=== PATIENT | male | born 1980 | race African-American/Black ===

== ENCOUNTER 2016-09-27 18:47 | Emergency (ER) | payer OTHER ==
[2016-09-27 19:18] VITALS: BP 123/58; PULSE 82; RESP 18; TEMP 98.2
[2016-09-27] MEDS ORDERED: ONDANSETRON 4 MG/2 ML VIAL IM STA (19:30)
[2016-09-27] MEDS ORDERED: DICYCLOMINE 10 MG/ML 2 ML AMP IM STA (19:30)
--- NOTE | 2016-09-27 19:33 | ED ---
Nausea/Vomiting/Diarrhea HPI - General Chief complaint: Nausea/Vomiting/Diarrhea Stated complaint: vomiting Time Seen by Provider: 09/27/16 19:21 Source: patient, RN notes reviewed Mode of arrival: ambulatory Limitations: no limitations - History of Present Illness Initial comments: 36-year-old male presents to the emergency Department chief complaint of nausea vomiting and diarrhea. Patient states he has been sick for about 2 days. Patient denies any hematemesis any coffee ground like diarrhea or any blood in the stool. Patient states that he does have 2 daughters and they were sick a few days ago with similar like symptoms they got better and then he developed the same symptoms. Patient states that he has some cramping is diffuse throughout the abdomen before he has diarrhea but there is no pain at this time. Patient denies any fevers or chills with this. Patient states he has been able to tolerate some oral intake. Patient denies any changes in urination. Patient has a significant health history are negative other symptoms. Patient denies any recent fever, chills, shortness of breath, chest pain, back pain, numbness or tingling, dysuria or hematuria, constipation or diarrhea, headaches or visual changes, or any other current symptoms. - Related Data Home Medications Medication Instructions Recorded Confirmed Dextroamphetamine/Amphetamine 10 mg PO BID 09/27/16 09/27/16 [Adderall] Previous Rx's Medication Instructions Recorded Dicyclomine [Bentyl] 10 mg PO TID #20 capsule 09/27/16 Ondansetron Odt [Zofran ODT] 4 mg PO Q8HR PRN #20 tab 09/27/16 Allergies Allergy/AdvReac Type Severity Reaction Status Date / Time No Known Allergies Allergy Verified 09/27/16 19:18 Review of Systems ROS Statement: Those systems with pertinent positive or pertinent negative responses have been documented in the HPI. ROS Other: All systems not noted in ROS Statement are negative. Past Medical History Past Medical History: No Reported History History of Any Multi-Drug Resistant Organisms: None Reported Past Surgical History: No Surgical Hx Reported Past Psychological History: No Psychological Hx Reported Smoking Status: Former smoker Past Alcohol Use History: None Reported Past Drug Use History: None Reported General Exam - General Exam Comments Initial Comments: General: The patient is awake and alert, in no distress, and does not appear acutely ill. Eye: Pupils are equal, round and reactive to light, extra-ocular movements are intact; there is normal conjunctiva bilaterally. No signs of icterus. Ears, nose, mouth and throat: There are moist mucous membranes and no oral lesions. Neck: The neck is supple, there is no tenderness. Cardiovascular: There is a regular rate and rhythm. No murmur, rub or gallop is appreciated. Respiratory: Lungs are clear to auscultation, respirations are non-labored, breath sounds are equal. No wheezes, stridor, rales, or rhonchi. Gastrointestinal: Soft, non-distended, non-tender abdomen without masses or organomegaly noted. There is no rebound or guarding present. No CVA tenderness. Bowel sounds are unremarkable. Back: There is no tenderness to palpation in the midline. There is no obvious deformity. No rashes noted. Musculoskeletal: Normal ROM, no tenderness, There is no pedal edema. There is no calf tenderness or swelling. Sensation intact. Pulses equal bilaterally 2+. Neurological: CN II-XII intact, There are no obvious motor or sensory deficits. Coordination appears grossly intact. Speech is normal. Skin: Skin is warm and dry and no rashes or lesions are noted. Psychiatric: Cooperative, appropriate mood & affect, normal judgment. Limitations: no limitations Course Vital Signs 09/27/16 19:15 Temperature 98.2 F Pulse Rate 82 Respiratory 18 Rate Blood Pressure 123/58 O2 Sat by Pulse 98 Oximetry Medical Decision Making - Medical Decision Making 36-year-old male presents to the emergency department with a chief complaint of nausea vomiting diarrhea. Patient was offered blood work he was offered x-ray to further evaluate. He states he just please see has a stomach flu he just needs some medicine to help deal with the symptoms. This and was started on Zofran and Bentyl for home. We discussed follow-up and return parameters. Patient stated that he understood all questions were answered. This time patient will be discharged home. Disposition Clinical Impression: Nausea & vomiting, Diarrhea Disposition: HOME SELF-CARE Condition: Stable Instructions: Gastroenteritis (ED) Additional Instructions: Please use medication as discussed. Please follow up with family doctor if symptoms have not improved over the next two days. Please return to the emergency room if your symptoms increase or worsen or for any other concerns. Prescriptions: Dicyclomine [Bentyl] 10 mg PO TID #20 capsule Ondansetron Odt [Zofran ODT] 4 mg PO Q8HR PRN #20 tab PRN Reason: Nausea Referrals: Susan Giordano MD [Primary Care Provider] - 1-2 days Time of Disposition: 19:33
== END 2016-09-27 19:59 | disposition home or self-care (01) ==
LOC: EC 18:47
DX: R11.2 Nausea with vomiting, unspecified (principal); R19.7 Diarrhea, unspecified; Z79.899 Other long term (current) drug therapy; Z87.891 Personal history of nicotine dependence
CPT/HCPCS: 99283; 96372; J0500; J2405

== ENCOUNTER 2017-06-21 17:39 | Emergency (ER) | payer OTHER ==
[2017-06-21 17:46] VITALS: BP 129/84; PULSE 82; RESP 18; TEMP 99.1
[2017-06-21] MEDS ORDERED: PROPARACAINE 0.5% OPHTH DROPS 15 ML BTL RIGHT EYE STA (17:51)
[2017-06-21] MEDS ORDERED: TOBRAMYCIN 0.3% OPHTH DROPS 5 ML BTL RIGHT EYE STA (18:23)
--- NOTE | 2017-06-21 18:23 | ED ---
Eye Problem HPI - General Chief complaint: Eye Problems Stated complaint: fb in rt eye (wood) Time Seen by Provider: 06/21/17 17:47 Source: patient Mode of arrival: ambulatory Limitations: no limitations - History of Present Illness Initial comments: 36-year-old male patient presents to emergency department today for complaints of foreign body to the right eye. Patient states that he was doing some donato and cutting wood when he fell sawdust go into his the right eye. He states this occurred approximately a half an hour ago. Patient states that since then he has felt a scratching in the inner part of the eye as well as on his eyelid. He states there are 2 brown spots that he believes is sawdust. He states that he did flush the eye with water however it did not improve his symptoms. He states he has been draining clear fluid. He states that his vision appears to be foggy. Patient states he is supposed to wear eyeglasses however has not had an cruise agent appointment in a few years. Patient denies any recent fever, chills, shortness breath, chest pain, abdominal pain, nausea, vomiting, diarrhea, constipation, back pain, numbness, tingling, headache, hematuria, dysuria, urinary frequency, urinary urgency, or any other complaints. He states he is up-to-date on his immunizations including tetanus. - Related Data Home Medications Medication Instructions Recorded Confirmed Dextroamphetamine/Amphetamine 10 mg PO BID 09/27/16 09/27/16 [Adderall] Previous Rx's Medication Instructions Recorded Dicyclomine [Bentyl] 10 mg PO TID #20 capsule 09/27/16 Ondansetron Odt [Zofran ODT] 4 mg PO Q8HR PRN #20 tab 09/27/16 Allergies Allergy/AdvReac Type Severity Reaction Status Date / Time No Known Allergies Allergy Verified 09/27/16 19:41 Review of Systems ROS Statement: Those systems with pertinent positive or pertinent negative responses have been documented in the HPI. ROS Other: All systems not noted in ROS Statement are negative. Past Medical History Past Medical History: No Reported History History of Any Multi-Drug Resistant Organisms: None Reported Past Surgical History: No Surgical Hx Reported Past Psychological History: No Psychological Hx Reported Smoking Status: Current every day smoker Past Alcohol Use History: None Reported Past Drug Use History: None Reported General Exam Limitations: no limitations General appearance: alert, in no apparent distress, other (Physical well- developed, well-nourished adult male patient in no acute distress. Vital signs upon presentation are temperature 99.1F, pulse 82, respirations 18, blood pressure 129/84, pulse ox 100% on room air.) Eye exam: Present: PERRL, EOMI, conjunctival injection (Mild right), other (Slit -lamp examination with foreseen stain shows no evidence for corneal abrasion, laceration, globe rupture, or conjunctival abrasion. Slit-lamp examination reveals no foreign body. Lid eversion performed with no evidence of foreign body. No evidence of hyphema. EOMI without pain or limitation.). Absent: normal appearance, scleral icterus, nystagmus, periorbital swelling ENT exam: Present: normal exam, normal oropharynx, mucous membranes moist Respiratory exam: Present: normal lung sounds bilaterally. Absent: respiratory distress, wheezes, rales, rhonchi, stridor Cardiovascular Exam: Present: regular rate, normal rhythm, normal heart sounds. Absent: systolic murmur, diastolic murmur, rubs, gallop, clicks Neurological exam: Present: alert, oriented X3, CN II-XII intact Psychiatric exam: Present: normal affect, normal mood Skin exam: Present: warm, dry, intact, normal color. Absent: rash Course Vital Signs 06/21/17 17:44 Temperature 99.1 F Pulse Rate 82 Respiratory 18 Rate Blood Pressure 129/84 O2 Sat by Pulse 100 Oximetry Medical Decision Making - Medical Decision Making 36-year-old male patient presented to emergency department today for possible foreign body to the right eye. Physical examination did reveal conjunctival injection with clear tearing. Monique lamp examination and slit lamp examination was performed and showed no evidence of foreign body, conjunctival abrasion, corneal abrasion, evidence of laceration, globe rupture. Patient did have foreign body sensation and immediate improvement with instillation of proparacaine drops. Patient will be discharged home today with tobramycin ophthalmic drops to be administered 4 times daily while awake. He is instructed also to obtain [id number] artificial tears with no preservatives for comfort. He is instructed to follow-up with ophthalmology if his symptoms don't improve over the next 1-2 days. He is instructed to return here immediately for any new, worsening, or concerning symptoms. He verbalizes understanding and agrees with this plan. Disposition Clinical Impression: Eye foreign body Disposition: HOME SELF-CARE Condition: Good Instructions: Eye Foreign Body (ED) Additional Instructions: The drops into the eye 4 times daily while awake. You can also take ibuprofen for pain control. Follow-up with ophthalmology if her symptoms aren't improving over the next 1-2 days. Return here immediately for any new, worsening, or concerning symptoms. Referrals: Susan Giordano MD [Primary Care Provider] - 1-2 days Gordy Reyes MD [STAFF PHYSICIAN] - 1-2 days Time of Disposition: 18:23
== END 2017-06-21 18:37 | disposition home or self-care (01) ==
LOC: EC 17:39
DX: T15.01XA Foreign body in cornea, right eye, initial encounter (principal); F17.200 Nicotine dependence, unspecified, uncomplicated; Z79.899 Other long term (current) drug therapy; Y93.89 Activity, other specified
CPT/HCPCS: 99283

== ENCOUNTER 2017-09-27 10:31 | Emergency (ER) | payer OTHER ==
[2017-09-27 10:59] VITALS: BP 135/78; PULSE 84; RESP 18; TEMP 98.8
--- NOTE | 2017-09-27 11:28 | XR ---
EXAMINATION TYPE: XR elbow complete LT DATE OF EXAM: 09/27/2017 COMPARISON: NONE HISTORY: Left elbow pain, no trauma TECHNIQUE: Three-view left elbow FINDINGS: No acute fractures are evident. The radius aligns normally with the humerus. Anterior fat p ad is normal. No elevation of posterior fat pad is present which is normal. Follow-up exams can be performed 7-10 days from acute trauma for continued pain. IMPRESSION: 1. Normal three-view left elbow.
--- NOTE | 2017-09-27 12:55 | ED ---
General Adult HPI - General Chief complaint: Extremity Injury, Upper Stated complaint: LEFT ELBOW PAIN, RADIATING UP AND DOWN Time Seen by Provider: 09/27/17 12:25 Source: patient, RN notes reviewed Mode of arrival: ambulatory Limitations: no limitations - History of Present Illness Initial comments: This is a 37-year-old male who presents to the emergency department with chief complaint of left elbow pain. Patient states that this has been recurring for the last month and half. He states that this morning the pain was worse. He states that it feels like it's in his musculature. Pain radiates down to his wrist. 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 Denies any specific injury or trauma to the area. Denies fever, chills , chest pain, shortness of breath, abdominal pain, nausea or vomiting, constipation or diarrhea, numbness or tingling, headache or vision changes. - Related Data Home Medications Medication Instructions Recorded Confirmed Ginkgo Biloba 500 mg PO DAILY 09/27/17 09/27/17 Ibuprofen [Motrin Ib] 600 mg PO Q6HR PRN 09/27/17 09/27/17 Turmeric Root Extract [Turmeric] 500 mg PO DAILY 09/27/17 09/27/17 Previous Rx's Medication Instructions Recorded Ibuprofen 600 mg PO Q6HR #20 tablet 09/27/17 Allergies Allergy/AdvReac Type Severity Reaction Status Date / Time No Known Allergies Allergy Verified 09/27/17 12:27 Review of Systems ROS Statement: Those systems with pertinent positive or pertinent negative responses have been documented in the HPI. ROS Other: All systems not noted in ROS Statement are negative. Past Medical History Past Medical History: No Reported History History of Any Multi-Drug Resistant Organisms: None Reported Past Surgical History: No Surgical Hx Reported Past Psychological History: No Psychological Hx Reported Smoking Status: Current every day smoker Past Alcohol Use History: Abuse Past Drug Use History: Marijuana General Exam - General Exam Comments Initial Comments: General: Awake and alert, well-developed; in no apparent distress. HEENT: Head atraumatic, normocephalic. Pupils are equal, round and reactive to light. Extraocular movements intact. Oropharynx moist without erythema or exudate. Neck: Supple. Normal ROM. Cardiovascular: Regular rate and rhythm. No murmurs, rubs or gallops. Chest symmetrical. Respiratory: Lungs clear to auscultation bilaterally. No wheezes, rales or rhonchi. Normal respiratory effort with no use of accessory muscles. Musculoskeletal: Normal ROM of left elbow. There is tenderness on palpation of the lateral epicondyle. Mild soft tissue swelling noted. No erythema or bruising noted. No abrasions. Sensation is intact. Radial pulses are 2+ equal and palpable bilaterally. Skin: [place], warm and dry without rashes or lesions. Neurological: Alert and oriented x3. CN II-XII grossly intact. Speech is fluent and answers are appropriate. No focal neuro deficits. Psychiatric: Normal mood and affect. No overt signs of depression or anxiety noted. Limitations: no limitations Course Vital Signs 09/27/17 10:57 Temperature 98.8 F Pulse Rate 84 Respiratory 18 Rate Blood Pressure 135/78 O2 Sat by Pulse 99 Oximetry Procedures - Orthopedic Splinting/Casting Injury #1 Side: left Upper Extremity Injury Location: elbow Upper Extremity Immobilizer: Deon wrap Additional Comments: Tolerated well. Neurovascularly intact. Medical Decision Making - Medical Decision Making This is a 37-year-old male who presents to the emergency department with chief complaint of left elbow pain. Patient denied any specific injury or trauma. Pain has been recurring for the past month. Patient performs repetitive motions at work. There is tenderness on palpation of the lateral epicondyle. Patient likely suffering from lateral epicondylitis. Deon bandage was placed in the emergency department and patient given prescription for ibuprofen 600. Recommended use of an arm band for some relief. Recommended rest. Patient can follow-up with orthopedics if needed. He is in no acute distress and will be discharged home. Patient is in agreement with plan and voices understanding. All questions were answered. Disposition Clinical Impression: Lateral epicondylitis of elbow Disposition: HOME SELF-CARE Condition: Good Instructions: Tennis Elbow (ED) Additional Instructions: Please rest, ice and take ibuprofen 600 as needed. May use an [id number] armband for added relief. Follow-up with orthopedics if pain does not resolve. Please take medications as prescribed. Please follow up with primary care provider within 1-2 days. Return to emergency department if symptoms should worsen or any concerns arise. Prescriptions: Ibuprofen 600 mg PO Q6HR #20 tablet Referrals: Susan Giordano MD [Primary Care Provider] - 1-2 days Richie Marquez MD [STAFF PHYSICIAN] - 1-2 days Time of Disposition: 12:52
== END 2017-09-27 13:13 | disposition home or self-care (01) ==
LOC: EC 10:31
DX: M77.12 Lateral epicondylitis, left elbow (principal); F17.200 Nicotine dependence, unspecified, uncomplicated; Z79.899 Other long term (current) drug therapy
CPT/HCPCS: 99283

== ENCOUNTER 2017-09-30 17:30 | Emergency (ER) | payer OTHER ==
[2017-09-30 17:40] VITALS: RESP 20
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
[2017-09-30] MEDS ORDERED: KETOROLAC 30 MG/ML 1 ML VIAL IVP STA (19:20)
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
[2017-09-30 19:58] VITALS: BP 150/73; PULSE 88; TEMP 98.9
== END 2017-09-30 19:57 | disposition home or self-care (01) ==
LOC: EC 17:30
DX: S80.01XA Contusion of right knee, initial encounter (principal); F17.200 Nicotine dependence, unspecified, uncomplicated; W22.8XXA Striking against or struck by other objects, initial encounter; Y99.0 Civilian activity done for income or pay
CPT/HCPCS: 73562; 99284; 96374; J1885

== ENCOUNTER 2018-10-29 02:45 | Emergency (ER) | payer OTHER ==
[2018-10-29] MEDS ORDERED: ONDANSETRON 4 MG/2 ML VIAL IVP STA (03:08)
[2018-10-29] MEDS ORDERED: PENICILLIN VK 500MG STARTER 4 TAB BTL PO STA (03:08)
[2018-10-29] MEDS ORDERED: KETOROLAC 30 MG/ML 1 ML VIAL IVP STA (03:08)
--- NOTE | 2018-10-29 03:39 | ED ---
ENT HPI - General Source: EMS Mode of arrival: EMS Limitations: no limitations <Maryjane Barrientos - Last Filed: 10/29/18 04:18> <Malathi Villeda - Last Filed: 10/29/18 21:45> - General Chief complaint: Dental/Oral Stated complaint: abd pain Time Seen by Provider: 10/29/18 02:49 - History of Present Illness Initial comments: 38 year-old male patient presents to the emergency department today for evaluation of right lower dental pain and right upper quadrant abdominal pain. Patient states that he has had a dental pain for the last month. Patient states over the last 2 days the pain in his tooth has started to become worse. Patient states the pain is radiating into his head. States she's been unable to sleep related to the pain. He states he has been taking numerous xwme-wuj-gpsxiux medications daily he is unsure of the actual names. Patient states that a couple days ago he also started having pain to the right upper quadrant abdomen. Patient states the pain is severe and radiates through to his back. He states that he has been nauseated with this. He denies any vomiting. States he is abl e to eat and drink. He states he has been having hot and cold flashes. He denies any documented temperatures. Patient denies any recent rash, shortness breath, chest pain, diarrhea, constipation, numbness, tingling, dizziness, weakness, hematuria, dysuria, urinary urgency, urinary frequency, headache, visual changes, or any other complaints. (Maryjane Barrientos) - Related Data Home Medications Medication Instructions Recorded Confirmed Ibuprofen [Motrin Ib] 800 mg PO TID PRN 09/30/17 10/29/18 Allergies Allergy/AdvReac Type Severity Reaction Status Date / Time No Known Allergies Allergy Verified 10/29/18 20:37 Review of Systems ROS Other: All systems not noted in ROS Statement are negative. <Maryjane Barrientos - Last Filed: 10/29/18 04:18> ROS Other: All systems not noted in ROS Statement are negative. <Malathi Villeda - Last Filed: 10/29/18 21:45> ROS Statement: Those systems with pertinent positive or pertinent negative responses have been documented in the HPI. Past Medical History Past Medical History: No Reported History History of Any Multi-Drug Resistant Organisms: None Reported Past Surgical History: No Surgical Hx Reported Past Psychological History: ADD/ADHD Smoking Status: Current every day smoker Past Alcohol Use History: Abuse Past Drug Use History: Marijuana <Maryjane Barrientos - Last Filed: 10/29/18 04:18> General Exam Limitations: no limitations General appearance: alert, in no apparent distress, other (Physical well- developed, well-nourished adult male patient in no acute distress. Vital signs upon presentation are temperature 98.9F, pulse 58, respirations 18, blood pressure 130/104, pulse ox 99% on room air.) Eye exam: Present: normal appearance, PERRL, EOMI. Absent: scleral icterus, conjunctival injection, periorbital swelling ENT exam: Present: normal exam, normal oropharynx, mucous membranes moist, other (Patient has large dental caries to tooth #32. There is some surrounding gingival erythema but no hyperplasia or evidence of drainable abscess.) Respiratory exam: Present: normal lung sounds bilaterally. Absent: respiratory distress, wheezes, rales, rhonchi, stridor Cardiovascular Exam: Present: regular rate, normal rhythm, normal heart sounds. Absent: systolic murmur, diastolic murmur, rubs, gallop, clicks GI/Abdominal exam: Present: soft, tenderness (Right upper quadrant, midepigastric tenderness), normal bowel sounds. Absent: distended, guarding, rebound, rigid Neurological exam: Present: alert, oriented X3, CN II-XII intact Psychiatric exam: Present: normal affect, normal mood Skin exam: Present: warm, dry, intact, normal color. Absent: rash <Maryjane Barrientos M - Last Filed: 10/29/18 04:18> Course Vital Signs 10/29/18 10/29/18 02:46 07:21 Temperature 98.9 F 98.8 F Pulse Rate 58 L 68 Respiratory 18 16 Rate Blood Pressure 130/104 143/66 O2 Sat by Pulse 99 98 Oximetry Medical Decision Making - Lab Data Result diagrams: 10/29/18 03:42 <Maryjane Barrientos M - Last Filed: 10/29/18 04:18> - Lab Data Result diagrams: 10/29/18 03:42 10/29/18 03:42 <Malathi Villeda - Last Filed: 10/29/18 21:45> - Medical Decision Making 38 old male patient presented to the emergency department today for evaluation of right lower dental pain and right upper quadrant abdominal pain. Patient also reported nausea and intermittent fevers with this. Patient does admit to taking excessive amounts of qbak-wtw-trjieik pain medications to treat his sym ptoms. Physical examination did reveal large dental carry to tooth #32. There is some surrounding gingival erythema but no evidence of gingival hyperplasia or drainable abscess. Patient is currently afebrile vital signs are stable. CBC does reveal white blood cell count of 11.2. CMP, acetaminophen, salicylate levels are still pending. Patient was started on penicillin given pain medication through the IV. Care will be handed over to my attending Dr. Villeda to follow patient until disposition. (Maryjane Barrientos) Personally saw and evaluated the patient. Patient's labs did reveal mildly elevated lipase I did discuss this with the patient advised to refrain from alcohol or Tylenol. Advised to drink plenty of fluids. Patient reports that his dental pain resolves only with chewing on ice or cold fluids. He does drink 64 cups of ice water on the emergency department produced almost 2 L of urine. He reports he's comfortable and pain-free time of discharge. I advised patient if he has any worsening abdominal pain to return to the ER for reevaluation. A ll questions pertaining care were answered return parameters were discussed the patient was discharged home in stable condition (Malathi Villeda) - Lab Data Lab Results 10/29/18 10/29/18 Range/Units 03:42 03:42 WBC 11.2 H (3.8-10.6) k/uL RBC 4.51 (4.30-5.90) m/uL Hgb 12.7 L (13.0-17.5) gm/dL Hct 39.8 (39.0-53.0) % MCV 88.1 (80.0-100.0) fL MCH 28.0 (25.0-35.0) pg MCHC 31.8 (31.0-37.0) g/dL RDW 13.8 (11.5-15.5) % Plt Count 242 (150-450) k/uL Neutrophils % 68 % Lymphocytes % 22 % Monocytes % 6 % Eosinophils % 2 % Basophils % 0 % Neutrophils # 7.6 (1.3-7.7) k/uL Lymphocytes # 2.5 (1.0-4.8) k/uL Monocytes # 0.7 (0-1.0) k/uL Eosinophils # 0.3 (0-0.7) k/uL Basophils # 0.0 (0-0.2) k/uL Sodium 136 L (137-145) mmol/L Potassium 3.8 (3.5-5.1) mmol/L Chloride 101 (98-107) mmol/L Carbon Dioxide 29 (22-30) mmol/L Anion Gap 6 mmol/L BUN 15 (9-20) mg/dL Creatinine 0.99 (0.66-1.25) mg/dL Est GFR (CKD-EPI)AfAm >90 (>60 ml/min/1.73 sqM) Est GFR (CKD-EPI)NonAf >90 (>60 ml/min/1.73 sqM) Glucose 94 (74-99) mg/dL Calcium 9.4 (8.4-10.2) mg/dL Total Bilirubin 0.5 (0.2-1.3) mg/dL AST 60 H (17-59) U/L ALT 61 (21-72) U/L Alkaline Phosphatase 53 (38-126) U/L Total Protein 6.4 (6.3-8.2) g/dL Albumin 4.0 (3.5-5.0) g/dL Amylase 112 H (30-110) U/L Lipase 481 H (23-300) U/L Salicylates <1.0 mg/dL Acetaminophen <10.0 ug/mL Disposition <Mrayjane Barrientos M - Last Filed: 10/29/18 04:18> Is patient prescribed a controlled substance at d/c from ED?: No <Malathi Villeda - Last Filed: 10/29/18 21:45> Clinical Impression: Dental caries Disposition: HOME SELF-CARE Condition: Stable Instructions (If sedation given, give patient instructions): Dental Caries (ED), Toothache (ED) Additional Instructions: Lipase which is a pancreas enzyme was mildly elevated today. Avoid alcohol. Drink plenty of fluids. Return to the ER if you're abdominal pain returns or gets worse. Referrals: Susan Giordano MD [Primary Care Provider] - 1-2 days
[2018-10-29 03:54] LABS: Basophils % (A) 0 %; Eosinophils # (A) 0.3 k/uL (0-0.7); Eosinophils % (A) 2 %; HCT 39.8 % (39.0-53.0); HGB 12.7 gm/dL (13.0-17.5); Lymphocytes # (A) 2.5 k/uL (1.0-4.8); Lymphocytes % (A) 22 %; MCHC 31.8 g/dL (31.0-37.0); MCV 88.1 fL (80.0-100.0); Mean Platelet Volume 7.2; Monocytes # (A) 0.7 k/uL (0-1.0); Monocytes % (A) 6 %; Neutrophils # (A) 7.6 k/uL (1.3-7.7); Neutrophils % (A) 68 %; Platelet Count 242 k/uL (150-450); RBC 4.51 m/uL (4.30-5.90); RDW 13.8 % (11.5-15.5); WBC 11.2 k/uL (3.8-10.6)
[2018-10-29 04:23] LABS: ALT 61 U/L (21-72); AST 60 U/L (17-59); Acetaminophen <10.0 ug/mL; Alkaline Phosphatase 53 U/L (38-126); Amylase 112 U/L (30-110); Anion Gap 6 mmol/L; Blood Urea Nitrogen 15 mg/dL (9-20); Calcium 9.4 mg/dL (8.4-10.2); Carbon Dioxide 29 mmol/L (22-30); Chloride 101 mmol/L (98-107); Glucose 94 mg/dL (74-99); Lipase 481 U/L (23-300); Potassium 3.8 mmol/L (3.5-5.1); Salicylate <1.0 mg/dL; Sodium 136 mmol/L (137-145); Total Bilirubin 0.5 mg/dL (0.2-1.3); Total Protein 6.4 g/dL (6.3-8.2)
[2018-10-29 07:22] VITALS: BP 143/66; PULSE 68; RESP 16; TEMP 98.8
== END 2018-10-29 07:22 | disposition home or self-care (01) ==
LOC: EC 02:45
DX: K02.9 Dental caries, unspecified (principal); R10.11 Right upper quadrant pain; R11.0 Nausea; M54.9 Dorsalgia, unspecified; R74.8 Abnormal levels of other serum enzymes; F17.200 Nicotine dependence, unspecified, uncomplicated
CPT/HCPCS: 36415; 80053; 82150; 83520; 83690; 85025; 96374; 96375; 99284

== ENCOUNTER 2018-10-29 20:26 | Emergency (ER) | payer OTHER ==
[2018-10-29 20:37] VITALS: TEMP 97.4
[2018-10-29] MEDS ORDERED: SODIUM CHLORIDE 0.9% 1,000 ML IV STA (21:04)
[2018-10-29] MEDS ORDERED: KETOROLAC 30 MG/ML 1 ML VIAL IVP STA (21:16)
--- NOTE | 2018-10-29 21:18 | ED ---
Abdominal Pain HPI - General Source: patient, EMS, RN notes reviewed, old records reviewed Mode of arrival: EMS Limitations: no limitations <Nata Edwards - Last Filed: 10/29/18 22:34> <Malathi Villeda - Last Filed: 10/29/18 22:46> - General Chief Complaint: Abdominal Pain Stated Complaint: Abd Pain Dental Pain Time Seen by Provider: 10/29/18 21:03 - History of Present Illness Initial Comments: Patient is a 38-year-old male presents emergency department today with complaints of right upper quadrant abdominal pain. He also complains of dental pain. He was seen yesterday for both complaints. Lab work obtained that time showed some mild elevation of pancreas enzymes. Patient reports that he's been taking a significant amount of Motrin Tylenol for his dental pain. Patient reports that his dental pain is only assisted with cold liquids. (Nata Edwards) - Related Data Home Medications Medication Instructions Recorded Confirmed Ibuprofen [Motrin Ib] 800 mg PO TID PRN 09/30/17 10/29/18 Previous Rx's Medication Instructions Recorded Penicillin V Potassium [Pen Vee K] 500 mg PO QID #40 tablet 10/29/18 Allergies Allergy/AdvReac Type Severity Reaction Status Date / Time No Known Allergies Allergy Verified 10/29/18 20:37 Review of Systems ROS Other: All systems not noted in ROS Statement are negative. <Nata Edwards - Last Filed: 10/29/18 22:34> ROS Other: All systems not noted in ROS Statement are negative. <Malathi Villeda P - Last Filed: 10/29/18 22:46> ROS Statement: Those systems with pertinent positive or pertinent negative responses have been documented in the HPI. Past Medical History Past Medical History: No Reported History History of Any Multi-Drug Resistant Organisms: None Reported Past Surgical History: No Surgical Hx Reported Past Psychological History: ADD/ADHD Smoking Status: Current every day smoker Past Alcohol Use History: Abuse Past Drug Use History: Marijuana <Nata Edwards - Last Filed: 10/29/18 22:34> General Exam Limitations: no limitations General appearance: alert, in no apparent distress Head exam: Present: atraumatic, normocephalic, normal inspection Eye exam: Present: normal appearance, PERRL, EOMI. Absent: scleral icterus, conjunctival injection, periorbital swelling ENT exam: Present: normal exam, mucous membranes moist Neck exam: Present: normal inspection. Absent: tenderness, meningismus, lymphadenopathy Respiratory exam: Present: normal lung sounds bilaterally. Absent: respiratory distress, wheezes, rales, rhonchi, stridor Cardiovascular Exam: Present: regular rate, normal rhythm, normal heart sounds. Absent: systolic murmur, diastolic murmur, rubs, gallop, clicks GI/Abdominal exam: Present: soft, normal bowel sounds. Absent: distended, tenderness, guarding, rebound, rigid Extremities exam: Present: normal inspection, full ROM, normal capillary refill. Absent: tenderness, pedal edema, joint swelling, calf tenderness Back exam: Present: normal inspection Neurological exam: Present: alert, oriented X3, CN II-XII intact Psychiatric exam: Present: normal affect, normal mood Skin exam: Present: warm, dry, intact, normal color. Absent: rash <Nata Edwards - Last Filed: 10/29/18 22:34> - General Exam Comments Initial Comments: 38-year-old male. Alert and oriented 3. No distress. (Nata Edwards) Course Vital Signs 10/29/18 10/29/18 20:33 22:17 Temperature 97.4 F L Pulse Rate 73 82 Respiratory 18 16 Rate Blood Pressure 145/83 140/82 O2 Sat by Pulse 100 100 Oximetry Medical Decision Making - Lab Data Result diagrams: 10/29/18 21:21 10/29/18 21:21 - Radiology Data Radiology results: report reviewed <Nata Edwards - Last Filed: 10/29/18 22:34> - Lab Data Result diagrams: 10/29/18 21:21 10/29/18 21:21 <Malathi Villeda - Last Filed: 10/29/18 22:46> - Medical Decision Making 38 showed male presents to return today for evaluation for dental pain and right upper quadrant abdominal pain. Patient labwork was reviewed today. Mild increase in pancreatic enzymes and liver enzymes. Ultrasound was completed. For any acute process. Discussed bili biliary colic. Discussed the Patient needs to avoid fatty greasy foods and this diet. Patient will be given a referral for surgeon. This I will discharge the Patient with a prescription for an fracture dental pain and a starter pack for Tylenol 3. Discussed strict return parameters. All questions were answered. (Nata Edwards) I was available for consultation in the emergency department. The history and physical exam were done by the midlevel provider. I was consulted for this patient's care. I reviewed the case with the midlevel provider and based on their presentation of the patient, I agree with the assessment, medical decision making and plan of care as documented. (Malathi Villeda) - Lab Data Lab Results 10/29/18 10/29/18 Range/Units 21:21 21:21 WBC 13.8 H (3.8-10.6) k/uL RBC 4.73 (4.30-5.90) m/uL Hgb 13.4 (13.0-17.5) gm/dL Hct 42.0 (39.0-53.0) % MCV 88.7 (80.0-100.0) fL MCH 28.4 (25.0-35.0) pg MCHC 32.0 (31.0-37.0) g/dL RDW 13.7 (11.5-15.5) % Plt Count 250 (150-450) k/uL Neutrophils % 77 % Lymphocytes % 17 % Monocytes % 4 % Eosinophils % 2 % Basophils % 0 % Neutrophils # 10.6 H (1.3-7.7) k/uL Lymphocytes # 2.3 (1.0-4.8) k/uL Monocytes # 0.5 (0-1.0) k/uL Eosinophils # 0.2 (0-0.7) k/uL Basophils # 0.0 (0-0.2) k/uL Sodium 134 L (137-145) mmol/L Potassium 4.1 (3.5-5.1) mmol/L Chloride 99 (98-107) mmol/L Carbon Dioxide 26 (22-30) mmol/L Anion Gap 9 mmol/L BUN 17 (9-20) mg/dL Creatinine 1.07 (0.66-1.25) mg/dL Est GFR (CKD-EPI)AfAm >90 (>60 ml/min/1.73 sqM) Est GFR (CKD-EPI)NonAf 90 (>60 ml/min/1.73 sqM) Glucose 78 (74-99) mg/dL Calcium 9.5 (8.4-10.2) mg/dL Total Bilirubin 0.6 (0.2-1.3) mg/dL AST 82 H (17-59) U/L ALT 77 H (21-72) U/L Alkaline Phosphatase 67 (38-126) U/L Total Protein 6.9 (6.3-8.2) g/dL Albumin 4.3 (3.5-5.0) g/dL Amylase 166 H (30-110) U/L Lipase 536 H (23-300) U/L - Radiology Data No acute findings. Liver measures 16.7 cm. No intrahepatic bile duct dilation. No Marquez sign. No stones. (Nata Edwards) Disposition Is patient prescribed a controlled substance at d/c from ED?: No Time of Disposition: 22:35 <Nata Edwards - Last Filed: 10/29/18 22:34> <Malathi Villeda - Last Filed: 10/29/18 22:46> Clinical Impression: Dental caries, Biliary colic Disposition: HOME SELF-CARE Condition: Good Instructions (If sedation given, give patient instructions): Biliary Colic (ED), Toothache (ED) Additional Instructions: [facility] [address] [place] [address] [phone] (existing clients only) For new clients: [phone] 1st consult: $50 (includes Xrays) Usually 30% less then private dentist for visits after. [employer] Have to pay $50 for Xrays anmd rest is covered. [phone] Patient advised to take the antibiotic as prescribed. Patient also should avoid any greasy fatty foods. Follow-up with the general surgeon to possibly need a HIDA scan. Return to the emergency department if any alarming signs or symptoms occur. Prescriptions: Penicillin V Potassium [Pen Vee K] 500 mg PO QID #40 tablet Referrals: Susan Giordano MD [Primary Care Provider] - 1-2 days Laureen Das MD [STAFF PHYSICIAN] - 1-2 days
[2018-10-29 21:41] LABS: Basophils % (A) 0 %; Eosinophils # (A) 0.2 k/uL (0-0.7); Eosinophils % (A) 2 %; HGB 13.4 gm/dL (13.0-17.5); Lymphocytes # (A) 2.3 k/uL (1.0-4.8); Lymphocytes % (A) 17 %; MCH 28.4 pg (25.0-35.0); MCV 88.7 fL (80.0-100.0); Mean Platelet Volume 7.6; Monocytes # (A) 0.5 k/uL (0-1.0); Monocytes % (A) 4 %; Neutrophils # (A) 10.6 k/uL (1.3-7.7); Neutrophils % (A) 77 %; Platelet Count 250 k/uL (150-450); RBC 4.73 m/uL (4.30-5.90); RDW 13.7 % (11.5-15.5); WBC 13.8 k/uL (3.8-10.6)
[2018-10-29 21:54] LABS: ALT 77 U/L (21-72); AST 82 U/L (17-59); Albumin 4.3 g/dL (3.5-5.0); Alkaline Phosphatase 67 U/L (38-126); Amylase 166 U/L (30-110); Anion Gap 9 mmol/L; Blood Urea Nitrogen 17 mg/dL (9-20); Calcium 9.5 mg/dL (8.4-10.2); Carbon Dioxide 26 mmol/L (22-30); Chloride 99 mmol/L (98-107); Glucose 78 mg/dL (74-99); Lipase 536 U/L (23-300); Potassium 4.1 mmol/L (3.5-5.1); Sodium 134 mmol/L (137-145); Total Bilirubin 0.6 mg/dL (0.2-1.3); Total Protein 6.9 g/dL (6.3-8.2)
[2018-10-29 22:18] VITALS: BP 140/82; PULSE 82; RESP 16
--- NOTE | 2018-10-29 22:20 | US ---
EXAM: US Abdomen Limited, Right Upper Quadrant CLINICAL HISTORY: Elevated lipase TECHNIQUE: Real-time ultrasound of the right upper quadrant with image documentation. COMPARISON: No relevant prior studies available. FINDINGS: Liver: Liver measures 16.7 cm. No intrahepatic bile duct dilation. Gallbladder: Negative sonographic Marquez's sign. No gallstones. Common bile duct: Unremarkable as visualized. No stones. No dilation. Pancreas: Unremarkable as visualized. Right kidney: Measures up to 11.6 cm. No stones. No solid mass. No hydronephrosis. IMPRESSION: No acute findings.
[2018-10-29] MEDS ORDERED: ACET/COD 300 MG/30 MG STARTER PACK 6 TAB BTL PO STA (22:39)
== END 2018-10-29 22:50 | disposition home or self-care (01) ==
LOC: EC 20:26
DX: K80.50 Calculus of bile duct without cholangitis or cholecystitis without obstruction (principal); K02.9 Dental caries, unspecified; R74.8 Abnormal levels of other serum enzymes; F17.200 Nicotine dependence, unspecified, uncomplicated
CPT/HCPCS: 36415; 80053; 82150; 83690; 85025; 76705; 99285; 96374; 96361; J1885

== ENCOUNTER 2019-05-29 23:07 | Emergency (ER) | payer OTHER ==
--- NOTE | 2019-05-30 01:16 | ED ---
URI HPI - General Chief Complaint: Upper Respiratory Infection Stated Complaint: Upper Resp Time Seen by Provider: 05/30/19 01:02 Source: patient Mode of arrival: ambulatory Limitations: no limitations - History of Present Illness Initial Comments: 38-year-old male presented for congestion cough 3 weeks. Patient states he has had a cough for the past 2 weeks. He states he is also had congestion at times fever or chills. Patient states the fever and chills have subsided since the first week. Patient states his persistent cough that makes his throat sore. Patient denies hemoptysis leg swelling chest pain shortness of breath. Patient denies history of asthma. Patient denies any other complaints including abdominal pain nausea vomiting diarrhea headache neck stiffness. Patient appears well upon. Afebrile no signs acute distress - Related Data Previous Rx's Medication Instructions Recorded Benzonatate [Tessalon Perles] 100 mg PO TID 7 Days #21 cap 05/30/19 predniSONE 20 mg PO DAILY 5 Days #5 tab 05/30/19 Allergies Allergy/AdvReac Type Severity Reaction Status Date / Time No Known Allergies Allergy Verified 10/29/18 20:37 Review of Systems ROS Statement: Those systems with pertinent positive or pertinent negative responses have been documented in the HPI. ROS Other: All systems not noted in ROS Statement are negative. Past Medical History Past Medical History: No Reported History History of Any Multi-Drug Resistant Organisms: None Reported Past Surgical History: No Surgical Hx Reported Past Psychological History: ADD/ADHD Smoking Status: Current every day smoker Past Alcohol Use History: None Reported Past Drug Use History: None Reported General Exam - General Exam Comments Initial Comments: General: The patient is awake and alert, in no distress, and does not appear acutely ill. Eye: +3 mm pupils are equal, round and reactive to light, extra-ocular movements are intact. No nystagmus. There is normal conjunctiva bilaterally. No signs of icterus. No photophobia Ears, nose, mouth and throat: There are moist mucous membranes and no oral lesions. Oropharynx was not erythematous there is no tonsillar enlargement exudates or lesions. Uvula midline. Tympanic membranes are not erythematous or is no effusions bulging or retraction. No tenderness to palpation of the mastoid. No anterior cervical lymphadenopathy. Rhinorrhea, clear and bilateral nares. No tripoding, no drooling. Neck: The neck is supple, there is no tenderness or JVD. No nuchal rigidity negative Brudzinski and Kernig Cardiovascular: There is a regular rate and rhythm. No murmur, rub or gallop is appreciated. Respiratory: Lungs are clear to auscultation, respirations are non-labored, breath sounds are equal. No wheezes, stridor, rales, or rhonchi. No retractions or abdominal breathing. Gastrointestinal: Soft, non-distended, non-tender abdomen without masses or organomegaly noted. There is no rebound or guarding present. Bowel sounds are unremarkable. Musculoskeletal: Normal ROM, no tenderness. Strength 5/5. Sensation intact. Radial pulses equal bilaterally 2+. Neurological: A&O x 3. CN II-XII intact, There are no obvious motor or sensory deficits. Coordination appears grossly intact. Speech appears normal, no muffling. Skin: Skin is warm and dry and no rashes or lesions are noted. No extremity edema Psychiatric: Cooperative Limitations: no limitations Course Vital Signs 05/29/19 05/30/19 23:32 02:10 Temperature 98.4 F 97.7 F Pulse Rate 85 62 Respiratory 18 16 Rate Blood Pressure 112/69 122/77 O2 Sat by Pulse 98 99 Oximetry Medical Decision Making - Medical Decision Making Well-appearing 38 or female presents emergency department for evaluation of cough 3 weeks. Appears well dry cough. Chest x-ray clear of focal consolidations. No fever. Lungs clear. At this time feel this is most likely viral bronchitis. Patient be treated prednisone and Tessalon Perles recent back relief. Patient is to follow-up primary care provider he is agreeable to discharging care plan as well as return parameters. Case discussed with attending provider patient was discharged appearing well Disposition Clinical Impression: Upper respiratory infection, Cough, Bronchitis Disposition: HOME SELF-CARE Condition: Good Instructions (If sedation given, give patient instructions): Acute Bronchitis (ED) Additional Instructions: Please use medication as discussed. Please follow-up with family doctor in the next 2 days. Please return to emergency room if the symptoms increase or worsen or for any other concerns. Please stop smoking as discussed Prescriptions: predniSONE 20 mg PO DAILY 5 Days #5 tab Benzonatate [Tessalon Perles] 100 mg PO TID 7 Days #21 cap Is patient prescribed a controlled substance at d/c from ED?: No Referrals: Susan Giordano MD [Primary Care Provider] - 1-2 days Time of Disposition: 01:42
--- NOTE | 2019-05-30 01:31 | XR ---
EXAMINATION TYPE: XR chest 2V DATE OF EXAM: 05/30/2019 COMPARISON: 08/28/2013 HISTORY: Chest pain TECHNIQUE: Frontal and lateral views of the chest are obtained. FINDINGS: Heart and mediastinum are normal. Lungs are clear of infiltrate. There is no heart failure . There are no hilar masses. There is no pleural effusion. There is some thickening of the right post erior eighth rib that could be a healing rib fracture. IMPRESSION: Possible healing right rib fracture. No active cardiopulmonary disease. Normal heart. He art and lungs unchanged.
[2019-05-30 02:22] VITALS: BP 122/77; PULSE 62; RESP 16; TEMP 97.7
== END 2019-05-30 02:10 | disposition home or self-care (01) ==
LOC: EC 23:07
DX: J40 Bronchitis, not specified as acute or chronic (principal); J06.9 Acute upper respiratory infection, unspecified; F17.200 Nicotine dependence, unspecified, uncomplicated
CPT/HCPCS: 71046; 99283

== ENCOUNTER 2020-04-14 23:09 | Emergency (ER) | payer OTHER ==
[2020-04-15] MEDS ORDERED: SODIUM CHLORIDE 0.9% 1,000 ML IV STA (00:18)
--- NOTE | 2020-04-15 00:53 | ED ---
General Adult HPI - General Chief complaint: Recheck/Abnormal Lab/Rx Stated complaint: CHILLS,FEVER Time Seen by Provider: 04/14/20 23:50 Source: patient, RN notes reviewed Mode of arrival: ambulatory Limitations: no limitations - History of Present Illness Initial comments: 39-year-old male presents to the emergency department for multiple vague compla ints. Patient states that he has not been drinking water like he should be. 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 States that today he started to feel lightheaded and fatigued. States he felt very hot and then suddenly cold and got chills. He did not lose consciousness. Patient is concerned he is dehydrated. He denies any chest pain or shortness of breath. Patient has no other complaints at this time including shortness of breath, chest pain, abdominal pain, nausea or vomiting, headache, or visual changes. - Related Data Previous Rx's Medication Instructions Recorded Benzonatate [Tessalon Perles] 100 mg PO TID 7 Days #21 cap 05/30/19 predniSONE [Deltasone] 20 mg PO DAILY 5 Days #5 tab 05/30/19 Allergies Allergy/AdvReac Type Severity Reaction Status Date / Time No Known Allergies Allergy Verified 04/14/20 23:21 Review of Systems ROS Statement: Those systems with pertinent positive or pertinent negative responses have been documented in the HPI. ROS Other: All systems not noted in ROS Statement are negative. Past Medical History Past Medical History: No Reported History History of Any Multi-Drug Resistant Organisms: None Reported Past Surgical History: No Surgical Hx Reported Past Psychological History: ADD/ADHD Smoking Status: Current every day smoker Past Alcohol Use History: None Reported Past Drug Use History: Marijuana General Exam Limitations: no limitations General appearance: alert, in no apparent distress Head exam: Present: atraumatic, normocephalic, normal inspection Eye exam: Present: normal appearance, PERRL, EOMI. Absent: scleral icterus, conjunctival injection, periorbital swelling ENT exam: Present: normal exam, mucous membranes moist Neck exam: Present: normal inspection, full ROM. Absent: tenderness, meningismus, lymphadenopathy Respiratory exam: Present: normal lung sounds bilaterally. Absent: respiratory distress, wheezes, rales, rhonchi, stridor Cardiovascular Exam: Present: regular rate, normal rhythm, normal heart sounds. Absent: systolic murmur, diastolic murmur, rubs, gallop, clicks GI/Abdominal exam: Present: soft, normal bowel sounds. Absent: distended, tenderness, guarding, rebound, rigid Course Vital Signs 04/14/20 04/15/20 23:16 01:15 Temperature 99 F 98.9 F Pulse Rate 101 H 93 Respiratory 20 16 Rate Blood Pressure 128/59 135/70 O2 Sat by Pulse 99 98 Oximetry Medical Decision Making - Medical Decision Making Vitals are stable. CBC is unremarkable. CMP shows some evidence of dehydration. Creatinine 1.30, BUN 24. Patient was given a liter of normal saline. Urinalysis unremarkable. EKG showed normal sinus rhythm. Patient is much better after fluids. Patient will be given a couple days off work. He is to follow-up with his doctor and return for any worsening symptoms. Currently orally rehydrating. - Lab Data Result diagrams: 04/15/20 00:41 04/15/20 00:41 Lab Results 04/15/20 04/15/20 04/15/20 Range/Units 00:41 00:41 00:41 WBC 5.6 (3.8-10.6) k/uL RBC 4.53 (4.30-5.90) m/uL Hgb 13.2 (13.0-17.5) gm/dL Hct 40.3 (39.0-53.0) % MCV 88.9 (80.0-100.0) fL MCH 29.2 (25.0-35.0) pg MCHC 32.9 (31.0-37.0) g/dL RDW 13.2 (11.5-15.5) % Plt Count 182 (150-450) k/uL Neutrophils % 67 % Lymphocytes % 18 % Monocytes % 12 % Eosinophils % 1 % Basophils % 1 % Neutrophils # 3.7 (1.3-7.7) k/uL Lymphocytes # 1.0 (1.0-4.8) k/uL Monocytes # 0.7 (0-1.0) k/uL Eosinophils # 0.1 (0-0.7) k/uL Basophils # 0.0 (0-0.2) k/uL Sodium 135 L (137-145) mmol/L Potassium 3.8 (3.5-5.1) mmol/L Chloride 103 (98-107) mmol/L Carbon Dioxide 24 (22-30) mmol/L Anion Gap 8 mmol/L BUN 24 H (9-20) mg/dL Creatinine 1.30 H (0.66-1.25) mg/dL Est GFR (CKD-EPI)AfAm 81 (>60 ml/min/1.73 sqM) Est GFR (CKD-EPI)NonAf 70 (>60 ml/min/1.73 sqM) Glucose 125 H (74-99) mg/dL Calcium 9.1 (8.4-10.2) mg/dL Total Bilirubin 0.2 (0.2-1.3) mg/dL AST 51 (17-59) U/L ALT 30 (4-49) U/L Alkaline Phosphatase 56 (38-126) U/L Troponin I (0.000-0.034) ng/mL Total Protein 6.2 L (6.3-8.2) g/dL Albumin 4.1 (3.5-5.0) g/dL Amylase 61 (30-110) U/L Lipase 147 (23-300) U/L Urine Color Yellow Urine Appearance Clear (Clear) Urine pH 5.5 (5.0-8.0) Ur Specific [place] 1.034 (1.001-1.035) Urine Protein Trace H (Negative) Urine Glucose (UA) Negative (Negative) Urine Ketones Negative (Negative) Urine Blood Negative (Negative) Urine Nitrite Negative (Negative) Urine Bilirubin Negative (Negative) Urine Urobilinogen <2.0 (<2.0) mg/dL Ur Leukocyte Esterase Negative (Negative) 04/15/20 Range/Units 00:41 WBC (3.8-10.6) k/uL RBC (4.30-5.90) m/uL Hgb (13.0-17.5) gm/dL Hct (39.0-53.0) % MCV (80.0-100.0) fL MCH (25.0-35.0) pg MCHC (31.0-37.0) g/dL RDW (11.5-15.5) % Plt Count (150-450) k/uL Neutrophils % % Lymphocytes % % Monocytes % % Eosinophils % % Basophils % % Neutrophils # (1.3-7.7) k/uL Lymphocytes # (1.0-4.8) k/uL Monocytes # (0-1.0) k/uL Eosinophils # (0-0.7) k/uL Basophils # (0-0.2) k/uL Sodium (137-145) mmol/L Potassium (3.5-5.1) mmol/L Chloride (98-107) mmol/L Carbon Dioxide (22-30) mmol/L Anion Gap mmol/L BUN (9-20) mg/dL Creatinine (0.66-1.25) mg/dL Est GFR (CKD-EPI)AfAm (>60 ml/min/1.73 sqM) Est GFR (CKD-EPI)NonAf (>60 ml/min/1.73 sqM) Glucose (74-99) mg/dL Calcium (8.4-10.2) mg/dL Total Bilirubin (0.2-1.3) mg/dL AST (17-59) U/L ALT (4-49) U/L Alkaline Phosphatase (38-126) U/L Troponin I <0.012 (0.000-0.034) ng/mL Total Protein (6.3-8.2) g/dL Albumin (3.5-5.0) g/dL Amylase (30-110) U/L Lipase (23-300) U/L Urine Color Urine Appearance (Clear) Urine pH (5.0-8.0) Ur Specific [place] (1.001-1.035) Urine Protein (Negative) Urine Glucose (UA) (Negative) Urine Ketones (Negative) Urine Blood (Negative) Urine Nitrite (Negative) Urine Bilirubin (Negative) Urine Urobilinogen (<2.0) mg/dL Ur Leukocyte Esterase (Negative) Disposition Clinical Impression: Dehydration Disposition: HOME SELF-CARE Condition: Good Instructions (If sedation given, give patient instructions): Dehydration (ED) Additional Instructions: Please drink plenty of fluids such as water and Gatorade and rest for the next couple days. Follow-up with your doctor. Return to the emergency room for any worsening symptoms. Is patient prescribed a controlled substance at d/c from ED?: No Referrals: Susan Giordano MD [Primary Care Provider] - 1-2 days Time of Disposition: 01:55
[2020-04-15 00:57] LABS: Basophils % (A) 1 %; Eosinophils # (A) 0.1 k/uL (0-0.7); Eosinophils % (A) 1 %; HCT 40.3 % (39.0-53.0); HGB 13.2 gm/dL (13.0-17.5); Lymphocytes % (A) 18 %; MCH 29.2 pg (25.0-35.0); MCHC 32.9 g/dL (31.0-37.0); MCV 88.9 fL (80.0-100.0); Mean Platelet Volume 7.2; Monocytes # (A) 0.7 k/uL (0-1.0); Monocytes % (A) 12 %; Neutrophils # (A) 3.7 k/uL (1.3-7.7); Neutrophils % (A) 67 %; Platelet Count 182 k/uL (150-450); RBC 4.53 m/uL (4.30-5.90); RDW 13.2 % (11.5-15.5); WBC 5.6 k/uL (3.8-10.6)
[2020-04-15 01:02] LABS: Albumin 4.1 g/dL (3.5-5.0); Calcium 9.1 mg/dL (8.4-10.2); Potassium 3.8 mmol/L (3.5-5.1); Total Bilirubin 0.2 mg/dL (0.2-1.3); Total Protein 6.2 g/dL (6.3-8.2)
[2020-04-15 01:38] LABS: Appearance,Urine Clear (Clear); Bilirubin,Urine Negative (Negative); Blood,Urine Negative (Negative); Color,Urine Yellow; Glucose,Urine (UA) Negative (Negative); Ketones,Urine Negative (Negative); Leukocyte Esterase,Urine Negative (Negative); Nitrite,Urine Negative (Negative); PH, Urine 5.5 (5.0-8.0); Protein,Urine Trace (Negative); Specific Gravity,Urine 1.034 (1.001-1.035); Urobilinogen,Urine <2.0 mg/dL (<2.0)
[2020-04-15 01:46] VITALS: BP 135/70; PULSE 93; RESP 16; TEMP 98.9
== END 2020-04-15 02:08 | disposition home or self-care (01) ==
LOC: EC 23:09
DX: E86.0 Dehydration (principal); F17.200 Nicotine dependence, unspecified, uncomplicated
CPT/HCPCS: 36415; 80053; 81003; 82150; 83690; 84484; 85025; 93005; 96360; 99283

== ENCOUNTER 2020-07-13 21:25 | Emergency (ER) | payer OTHER ==
--- NOTE | 2020-07-13 22:35 | ED ---
General Adult HPI - General Chief complaint: Recheck/Abnormal Lab/Rx Stated complaint: Rectal Pain Time Seen by Provider: 07/13/20 22:00 Source: patient Mode of arrival: ambulatory Limitations: no limitations - History of Present Illness Initial comments: This patient is 39-year-old man who complains of having intermittent sharp rectal pains going back for a couple of months, that seem to have become a little more frequent. He states that they may be correlated with activity. He does occasionally note that they come on with lifting or with walking on stairs. He states that they'll be sharp in sensation, moderate to severe intensity, but brief. He has not noted change in bowel movements but does occasionally get some blood with wiping. No abdominal pain. No change in urination. -: month(s) Radiation: non-radiation Quality: sharp Consistency: intermittent, now resolved Improves with: none Worsens with: none Associated Symptoms: denies other symptoms Treatments Prior to Arrival: none - Related Data Previous Rx's Medication Instructions Recorded Nitroglycerin Oint [Nitro-Bid Oint] 0.5 inch TRANSDERM Q8H PRN #15 gm 07/13/20 Allergies Allergy/AdvReac Type Severity Reaction Status Date / Time No Known Allergies Allergy Verified 07/13/20 22:51 Review of Systems ROS Statement: Those systems with pertinent positive or pertinent negative responses have been documented in the HPI. ROS Other: All systems not noted in ROS Statement are negative. Constitutional: Denies: fever, chills Respiratory: Denies: cough, dyspnea Cardiovascular: Denies: chest pain Gastrointestinal: Denies: abdominal pain, nausea, vomiting, diarrhea, constipation, melena, hematochezia Genitourinary: Denies: dysuria, frequency, hematuria, testicular pain Musculoskeletal: Denies: back pain Skin: Denies: rash Hematological/Lymphatic: Denies: easy bleeding Past Medical History Past Medical History: No Reported History History of Any Multi-Drug Resistant Organisms: None Reported Past Surgical History: No Surgical Hx Reported Past Psychological History: ADD/ADHD Smoking Status: Current every day smoker Past Alcohol Use History: None Reported Past Drug Use History: Marijuana General Exam Limitations: no limitations General appearance: alert, in no apparent distress Head exam: Present: atraumatic, normocephalic Eye exam: Present: normal appearance. Absent: scleral icterus, conjunctival injection Respiratory exam: Present: normal lung sounds bilaterally. Absent: respiratory distress, wheezes, rales, rhonchi, stridor Cardiovascular Exam: Present: regular rate, normal rhythm, normal heart sounds. Absent: systolic murmur, diastolic murmur, rubs, gallop GI/Abdominal exam: Present: soft. Absent: distended, tenderness, guarding, rebound, rigid, mass, pulsatile mass, hernia Rectal exam: Present: normal inspection, hemorrhoids, normal prostate. Absent: black stool, bloody stool, fecal impaction, mass, prostate tenderness Extremities exam: Present: normal inspection, normal capillary refill. Absent: pedal edema, calf tenderness Back exam: Present: normal inspection Neurological exam: Present: alert Skin exam: Present: warm, dry, intact, normal color. Absent: rash Course Vital Signs 07/13/20 21:55 Temperature 98.1 F Pulse Rate 85 Respiratory 20 Rate Blood Pressure 130/66 O2 Sat by Pulse 97 Oximetry Medical Decision Making - Lab Data Lab Results 07/13/20 Range/Units 22:29 Stool Occult Blood Negative (Negative) Disposition Clinical Impression: Paroxysmal proctalgia Disposition: HOME SELF-CARE Condition: Good Instructions (If sedation given, give patient instructions): Rectal Pain (ED) Prescriptions: Nitroglycerin Oint [Nitro-Bid Oint] 0.5 inch TRANSDERM Q8H PRN #15 gm PRN Reason: Pain Is patient prescribed a controlled substance at d/c from ED?: No Referrals: Susan Giordano MD [Primary Care Provider] - 1-2 days Winsome Lopez MD [STAFF PHYSICIAN] - 1-2 days
[2020-07-13 23:25] VITALS: BP 137/72; PULSE 79; RESP 18; TEMP 97.8
== END 2020-07-13 23:27 | disposition home or self-care (01) ==
LOC: EC 21:25
DX: K62.89 Other specified diseases of anus and rectum (principal); F17.200 Nicotine dependence, unspecified, uncomplicated
CPT/HCPCS: 36415; 82272; 99283

== ENCOUNTER 2022-11-03 08:33 | Emergency (ER) | payer OTHER ==
[2022-11-03 08:45] VITALS: RESP 16; TEMP 98.6
[2022-11-03] MEDS ORDERED: KETOROLAC 15 MG/ML 1 ML VIAL IM STA (09:25)
[2022-11-03] MEDS ORDERED: ONDANSETRON ODT 4 MG TAB PO STA (09:25)
--- NOTE | 2022-11-03 09:38 | XR ---
EXAMINATION TYPE: XR chest 2V DATE OF EXAM: 11/03/2022 COMPARISON: 05/30/2019 INDICATION: Cough, pain, nausea TECHNIQUE: Frontal and lateral views of the chest are obtained. FINDINGS: The heart size is normal. The pulmonary vasculature is normal. The lungs are clear. IMPRESSION: 1. No acute pulmonary process.
[2022-11-03 11:02] VITALS: BP 123/89; PULSE 88
--- NOTE | 2022-11-03 11:04 | ED ---
General Adult HPI - General Chief complaint: Nausea/Vomiting/Diarrhea Stated complaint: body aches diarrhea Time Seen by Provider: 11/03/22 08:46 Source: patient Mode of arrival: ambulatory Limitations: no limitations - History of Present Illness Initial comments: 42-year-old male presents to the emergency room with reported cough, body aches, chills, fever since . Denies any sick contacts with similar symptoms. He has been taking Advil for his fever. Last dose was one hour ago. He has also had some nausea, vomiting, diarrhea. Denies abdominal pain. Admits to sore throat. No ear pain. He attempted to go into work today however he was sent home because of his symptoms. No other alleviating, precipitating or modifying factors - Related Data Previous Rx's Medication Instructions Recorded Nitroglycerin Oint [Nitro-Bid Oint] 0.5 inch TRANSDERM Q8H PRN #15 gm 07/13/20 Acetaminophen-Codeine 300-30mg 1 tab PO Q4H PRN #18 tablet 11/03/22 [Tylenol #3] Ondansetron Odt [Zofran Odt] 4 mg PO Q8HR PRN #20 tab 11/03/22 Allergies Allergy/AdvReac Type Severity Reaction Status Date / Time No Known Allergies Allergy Verified 11/03/22 08:41 Review of Systems ROS Statement: Those systems with pertinent positive or pertinent negative responses have been documented in the HPI. ROS Other: All systems not noted in ROS Statement are negative. Past Medical History Past Medical History: No Reported History History of Any Multi-Drug Resistant Organisms: None Reported Past Surgical History: No Surgical Hx Reported Past Psychological History: ADD/ADHD Smoking Status: Current every day smoker Past Alcohol Use History: None Reported Past Drug Use History: Marijuana General Exam Limitations: no limitations General appearance: alert, in no apparent distress Head exam: Present: atraumatic, normocephalic, normal inspection Eye exam: Present: normal appearance, PERRL, EOMI. Absent: scleral icterus, conjunctival injection, periorbital swelling ENT exam: Present: normal exam, mucous membranes moist Neck exam: Present: normal inspection. Absent: tenderness, meningismus, lymphadenopathy Respiratory exam: Present: normal lung sounds bilaterally. Absent: respiratory distress, wheezes, rales, rhonchi, stridor Cardiovascular Exam: Present: regular rate, normal rhythm, normal heart sounds. Absent: systolic murmur, diastolic murmur, rubs, gallop, clicks GI/Abdominal exam: Present: soft, normal bowel sounds. Absent: distended, tenderness, guarding, rebound, rigid Extremities exam: Present: normal inspection, full ROM, normal capillary refill. Absent: tenderness, pedal edema, joint swelling, calf tenderness Back exam: Present: normal inspection Neurological exam: Present: alert, oriented X3, CN II-XII intact Psychiatric exam: Present: normal affect, normal mood Skin exam: Present: warm, dry, intact, normal color. Absent: rash Course Vital Signs 11/03/22 11/03/22 11/03/22 08:41 10:44 11:15 Temperature 98.6 F 98.6 F 98.6 F Pulse Rate 87 88 88 Respiratory 16 16 16 Rate Blood Pressure 122/77 123/89 123/89 O2 Sat by Pulse 98 98 98 Oximetry Medical Decision Making - Medical Decision Making Was pt. sent in by a medical professional or institution (, PA, TITLE SEARCH MANAGER, urgent care, hospital, or halfway...) When possible be specific @ -No Did you speak to anyone other than the patient for history (EMS, parent, family, police, friend...)? What history was obtained from this source @ -No Did you review nursing and triage notes (agree or disagree)? Why? @ -I reviewed and agree with nursing and triage notes Were old charts reviewed (outside hosp., previous admission, EMS record, old EKG, old radiological studies, urgent care reports/EKG's, halfway records)? Report findings @ -No Differential Diagnosis (chest pain, altered mental status, abdominal pain women, abdominal pain men, vaginal bleeding, weakness, fever, dyspnea, syncope, headache, dizziness, GI bleed, back pain, seizure, CVA, palpatations, mental health, musculoskeletal)? @ -covid, influenza, uri, pneumonia EKG interpreted by me (3pts min.). @ -No X-rays interpreted by me (1pt min.). @ -Yes CT interpreted by me (1pt min.). @ -Not done U/S interpreted by me (1pt. min.). @ -Not done What testing was considered but not performed or refused? (CT, X-rays, U/S, labs)? Why? @ -None What meds were considered but not given or refused? Why? @ -Tamiflu - patient refused Did you discuss the management of the patient with other professionals (professionals i.e. , REUBEN, TITLE SEARCH MANAGER, lab, RT, psych nurse, social service assistant, gum sprayer, teacher, personnel officer, family service caseworker)? Give summary @ -No Was smoking cessation discussed for >3mins.? @ -Yes Was critical care preformed (if so, how long)? @ -No Were there social determinants of health that impacted care today? How? (Homelessness, low income, unemployed, alcoholism, drug addiction, transportation, low edu. Level, literacy, decrease access to med. care, long term, rehab)? @ -No Was there de-escalation of care discussed even if they declined (Discuss DNR or withdrawal of care, Hospice)? DNR status @ -No What co-morbidities impacted this encounter? (DM, HTN, Smoking, COPD, CAD, Cancer, CVA, ARF, Chemo, Hep., AIDS, mental health diagnosis, sleep apnea, morbid obesity)? @ -None Was patient admitted / discharged? Hospital course, mention meds given and route, prescriptions, significant lab abnormalities, going to OR and other pertinent info. @ -Upon arrival patient was placed into room 20. A thorough history and physical exam was performed. Patient is swabbed for influenza, Covid and RSV. He is positive for influenza B. Chest x-ray demonstrates no acute process. He was given a dose of Zofran for nausea. Is able to eat and drink in the emergency department. He was initially given Toradol for pain. He will be discharged home with the first reduction for Tylenol 3's as he is requesting something stronger for pain. He is offered Tamiflu however patient refused. He is to rest, increase fluid intake. Follow up with PCP and return for new or worsening symptoms. Patient was agreeable plan discharge home in stable condition Undiagnosed new problem with uncertain prognosis? @ -yes Drug Therapy requiring intensive monitoring for toxicity (Heparin, Nitro, Insulin, Cardizem)? @ -No Were any procedures done? @ -No Diagnosis/symptom? @ -influenza b Acute, or Chronic, or Acute on Chronic? @ -acute Uncomplicated (without systemic symptoms) or Complicated (systemic symptoms)? @ -complicated Side effects of treatment? @ -No Exacerbation, Progression, or Severe Exacerbation? @ -No Poses a threat to life or bodily function? How? (Chest pain, [place], [place], pneumonia, PE, COPD, DKA, ARF, appy, cholecystitis, CVA, Diverticulitis, Homicidal, Suicidal, threat to staff... and all critical care pts) @ -no - Lab Data Lab Results 11/03/22 Range/Units 09:55 Influenza Type A (PCR) Not Detected (Not Detectd) Influenza Type B (PCR) Detected A (Not Detectd) RSV (PCR) Not Detected (Not Detectd) SARS-CoV-2 (PCR) Not Detected (Not Detectd) Disposition Clinical Impression: Influenza B, Myalgia, Pyrexia Disposition: HOME SELF-CARE Condition: Stable Instructions (If sedation given, give patient instructions): Influenza (ED) Additional Instructions: Please alternate taking Motrin and Tylenol for fever. You may return to work when your fever has been gone for 24 hours. Increase your fluid intake and rest. Return for any new or worsening symptoms Prescriptions: Acetaminophen-Codeine 300-30mg [Tylenol #3] 1 tab PO Q4H PRN #18 tablet PRN Reason: pain Ondansetron Odt [Zofran Odt] 4 mg PO Q8HR PRN #20 tab PRN Reason: Nausea Is patient prescribed a controlled substance at d/c from ED?: Yes When asked, does pt state using other controlled substances?: No If prescribed controlled substance>3 days was MAPS reviewed?: Prescribed <3 Days Referrals: Susan Giordano MD [Primary Care Provider] - 1-2 days Time of Disposition: 11:04
== END 2022-11-03 11:16 | disposition home or self-care (01) ==
LOC: EC 08:33
DX: J10.1 Influenza due to other identified influenza virus with other respiratory manifestations (principal); F17.200 Nicotine dependence, unspecified, uncomplicated; Z20.822 Contact with and (suspected) exposure to COVID-19; F12.90 Cannabis use, unspecified, uncomplicated
CPT/HCPCS: 87636; 71046; 99284; 96372; J1885

== ENCOUNTER 2023-11-19 04:07 | Emergency (ER) | payer OTHER ==
[2023-11-19 04:30] VITALS: RESP 18
--- NOTE | 2023-11-19 05:20 | ED ---
ENT HPI - General Chief complaint: Dental/Oral Stated complaint: Tooth infection Time Seen by Provider: 11/19/23 05:05 Source: patient Mode of arrival: ambulatory - History of Present Illness Initial comments: Patient is a 43-year-old man complaining of left maxillary tooth pain. He states it has been going on probably about for 5 days now. He states that that tooth had cracked sometime ago. Denies systemic symptoms, no fever or chills, palpitations dyspnea. MD complaint: tooth pain Onset/Timin -: days(s) Severity: moderate Quality: aching Consistency: constant Improves with: none Worsens with: none Context- Dental: history of dental caries - Related Data Previous Rx's Medication Instructions Recorded Nitroglycerin Oint [Nitro-Bid Oint] 0.5 inch TRANSDERM Q8H PRN #15 gm 07/13/20 Acetaminophen-Codeine 300-30mg 1 tab PO Q4H PRN #18 tablet 11/03/22 [Tylenol #3] Ondansetron Odt [Zofran Odt] 4 mg PO Q8HR PRN #20 tab 11/03/22 Amoxic-Pot Clav 875-125Mg 1 tab PO Q12HR 1 Days #20 tab 11/19/23 [Augmentin 875-125] Ibuprofen [Motrin] 600 mg PO Q8HR PRN #20 tab 11/19/23 Allergies Allergy/AdvReac Type Severity Reaction Status Date / Time No Known Allergies Allergy Verified 11/03/22 08:41 Review of Systems ROS Statement: Those systems with pertinent positive or pertinent negative responses have been documented in the HPI. ROS Other: All systems not noted in ROS Statement are negative. Constitutional: Denies: fever, chills ENT: Denies: throat pain Respiratory: Denies: cough, dyspnea Cardiovascular: Denies: chest pain, palpitations Neurological: Denies: headache, weakness Past Medical History Past Medical History: No Reported History History of Any Multi-Drug Resistant Organisms: None Reported Past Surgical History: No Surgical Hx Reported Past Psychological History: ADD/ADHD Smoking Status: Current every day smoker Past Alcohol Use History: None Reported Past Drug Use History: Marijuana General Exam General appearance: alert, in no apparent distress Head exam: Present: atraumatic, normocephalic Eye exam: Present: normal appearance, PERRL. Absent: scleral icterus, conjunctival injection, periorbital swelling, periorbital tenderness ENT exam: Present: other (No abscess detected. Patient does have some soft tissue swelling adjacent to maxilla #9/10) Neck exam: Present: normal inspection, full ROM. Absent: tenderness, lymphadenopathy Respiratory exam: Present: normal lung sounds bilaterally. Absent: respiratory distress, wheezes, rales, rhonchi, stridor Cardiovascular Exam: Present: regular rate, normal rhythm, normal heart sounds. Absent: systolic murmur, diastolic murmur, rubs, gallop Skin exam: Present: warm, dry, intact, normal color. Absent: rash Course Vital Signs 11/19/23 11/19/23 04:12 05:32 Temperature 98.0 F 98.2 F Pulse Rate 75 80 Respiratory 18 18 Rate Blood Pressure 164/93 131/89 O2 Sat by Pulse 100 99 Oximetry Medical Decision Making - Medical Decision Making Was pt. sent in by a medical professional or institution (, PA, DATE NIGHT SITTER, urgent care, hospital, or half-way...) When possible be specific @ -[No] Did you speak to anyone other than the patient for history (EMS, parent, family, police, friend...)? What history was obtained from this source @ -[No] Did you review nursing and triage notes (agree or disagree)? Why? @ -[I reviewed and agree with nursing and triage notes] Were old charts reviewed (outside hosp., previous admission, EMS record, old EKG, old radiological studies, urgent care reports/EKG's, half-way records)? Report findings @ -[No old charts were reviewed] Differential Diagnosis (chest pain, altered mental status, abdominal pain women, abdominal pain men, vaginal bleeding, weakness, fever, dyspnea, syncope, headache, dizziness, GI bleed, back pain, seizure, CVA, palpatations, mental health, musculoskeletal)? @ -[Differential diagnosis includes caries, abscess, sinus infection, cavernous sinus thrombosis, amongst other conditions this list not friends of EKG interpreted by me (3pts min.). @ -[As above] X-rays interpreted by me (1pt min.). @ -[None done] CT interpreted by me (1pt min.). @ -[None done] U/S interpreted by me (1pt. min.). @ -[None done] What testing was considered but not performed or refused? (CT, X-rays, U/S, labs)? Why? @ -[None] What meds were considered but not given or refused? Why? @ -[None] Did you discuss the management of the patient with other professionals (professionals i.e. , PA, DATE NIGHT SITTER, lab, RT, psych nurse, director social service, lmft, teacher, food safety officer, watch case polisher)? Give summary @ -[No] Was smoking cessation discussed for >3mins.? @ -[No] Was critical care preformed (if so, how long)? @ -[No] Were there social determinants of health that impacted care today? How? (Homele ssness, low income, unemployed, alcoholism, drug addiction, transportation, low edu. Level, literacy, decrease access to med. care, [facility], rehab)? @ -[No] Was there de-escalation of care discussed even if they declined (Discuss DNR or withdrawal of care, Hospice)? DNR status @ -[No] What co-morbidities impacted this encounter? (DM, HTN, Smoking, COPD, CAD, Cancer, CVA, ARF, Chemo, Hep., AIDS, mental health diagnosis, sleep apnea, morbid obesity)? @ -[None] Was patient admitted / discharged? Hospital course, mention meds given and route, prescriptions, significant lab abnormalities, going to OR and other pertinent info. @ -[Patient is a 43-year-old man with dental caries and infection. Patient will be started on antibiotics and analgesic. Discussed appropriate further care and follow-up as well as return parameters Undiagnosed new problem with uncertain prognosis? @ -[No] Drug Therapy requiring intensive monitoring for toxicity (Heparin, Nitro, Insulin, Cardizem)? @ -[No] Were any procedures done? @ -[No] Diagnosis/symptom? @ -[Dental caries Acute, or Chronic, or Acute on Chronic? @ -[Acute Uncomplicated (without systemic symptoms) or Complicated (systemic symptoms)? @ -[Uncomplicated Side effects of treatment? @ -[No] Exacerbation, Progression, or Severe Exacerbation? @ -[No] Poses a threat to life or bodily function? How? (Chest pain, [place], [place], pneumonia, PE, COPD, DKA, ARF, appy, cholecystitis, CVA, Diverticulitis, Homicidal, Suicidal, threat to staff... and all critical care pts) @ -[There is small risk of progression, requires follow-up Disposition Clinical Impression: Dental caries Disposition: HOME SELF-CARE Condition: Good Instructions (If sedation given, give patient instructions): Toothache (ED) Prescriptions: Amoxic-Pot Clav 875-125Mg [Augmentin 875-125] 1 tab PO Q12HR 1 Days #20 tab Ibuprofen [Motrin] 600 mg PO Q8HR PRN #20 tab PRN Reason: Pain Is patient prescribed a controlled substance at d/c from ED?: No Referrals: Susan Giordano MD [Primary Care Provider] - 1-2 days
[2023-11-19] MEDS: ACET/COD 300 MG/30 MG STARTER PACK 6 TAB BTL PO STA (05:30)
[2023-11-19] MEDS: AMOXIC-POT CLAV 875MG STARTER PACK 2 TAB BTL PO STA (05:31)
[2023-11-19 05:43] VITALS: BP 131/89; PULSE 80; TEMP 98.2
== END 2023-11-19 05:34 | disposition home or self-care (01) ==
LOC: EC 04:07
DX: K02.9 Dental caries, unspecified (principal); F17.200 Nicotine dependence, unspecified, uncomplicated; F12.90 Cannabis use, unspecified, uncomplicated
CPT/HCPCS: 99282

== ENCOUNTER → 2024-07-29 | Outpatient (CLI) | payer OTHER ==
--- NOTE | 2024-07-29 16:08 | XR ---
EXAMINATION TYPE: XR abdomen acute w cxr DATE OF EXAM: 07/29/2024 3:59 PM CLINICAL INDICATION: Male, 43 years old with history of LEFT UPPER QUAD ABD PAIN R10.12; [facility] COMPARISON: None. TECHNIQUE: Two radiographic views of the abdomen (upright and supine) and a frontal chest radiograph were obtained. FINDINGS CHEST: Lungs/Pleura: The lungs are clear. There is no evidence of pleural effusion, focal consolidation or p neumothorax. Mediastinum: Unremarkable. Vasculature: Normal. Heart: Normal in size. Musculoskeletal: The osseous structures are intact. Other findings: No significant. FINDINGS ABDOMEN: Bowel gas pattern: Normal without dilated loops of small or large bowel. Fecal material and gas are d emonstrated throughout the colon and rectum. Abnormal calcifications: None. Musculoskeletal: Normal. Other: None. IMPRESSION: 1. No radiographic evidence for acute abdominal process. 2. No acute cardiopulmonary process [facility], , 07/29/2024 4:06 PM
== END | disposition home or self-care (01) ==
LOC: RADXRMAIN 15:38
PROVIDERS: ATTEND Family Medicine
DX: R10.12 Left upper quadrant pain (principal)
CPT/HCPCS: 74022

== ENCOUNTER → 2024-08-06 | Outpatient (CLI) | payer OTHER ==
--- NOTE | 2024-08-06 17:17 | CT ---
EXAMINATION TYPE: CT abdomen pelvis w con DATE OF EXAM: 08/06/2024 4:55 PM COMPARISON: 06/06/2015 CLINICAL INDICATION: Male, 43 years old with history of R10.12 LEFT UPPER QUADRANT PAIN; Left side ab dominal pain. TECHNIQUE: Axial CT abdomen pelvis w con;Sagittal and coronal reformats were created on a separate w orkstation. Contrast used:100 ml mL of Isovue 300 with IV Contrast, (none if empty) Oral contrast used: with Oral Contrast (none if empty) CT DLP: 521.7 mGycm, Automated exposure control for dose reduction was used. FINDINGS: LOWER CHEST: Unremarkable ABDOMEN LIVER: Unremarkable GALLBLADDER AND BILE DUCTS: Unremarkable. PANCREAS: Unremarkable. SPLEEN: Unremarkable. ADRENAL GLANDS: Unremarkable. KIDNEYS AND URETERS: No evidence of hydronephrosis or renal calculus. The ureters are unremarkable. PELVIS BLADDER: No evidence for wall thickening or mass given limitations of exam. REPRODUCTIVE: Unremarkable. ABDOMEN & PELVIS STOMACH AND BOWEL: No evidence of bowel obstruction. Posterior ventral abdominal fat limits evaluatio n of the bowel for adjacent fat stranding. The appendix is normal. PERITONEUM/RETROPERITONEUM: No evidence of pneumoperitoneum or free fluid. VASCULATURE: No evidence of aortic aneurysm. MUSCULOSKELETAL: No acute osseous abnormalities LYMPH NODES: No gross evidence for lymphadenopathy. SOFT TISSUE/ABDOMINAL WALL: Unremarkable IMPRESSION: 1. No evidence for acute abdominal process. No obstructive uropathy or calculus. Evaluation of the i ntra-abdominal structures is mildly limited due to paucity of intra-abdominal fat. 2. The appendix is normal. [facility], , 08/06/2024 5:15 PM
== END | disposition home or self-care (01) ==
LOC: RADCTMAIN 14:26
PROVIDERS: ATTEND Family Medicine
DX: R10.12 Left upper quadrant pain (principal)
CPT/HCPCS: 74177; Q9967